=== PATIENT | male | born 1935 | race Caucasian/White ===

== ENCOUNTER → 2017-08-01 | Outpatient (CLI) | payer OTHER ==
[~2017-08-01] MED LIST: ASPI81CH PO; ATOR10 PO; CODGUAEL PO; Diovan Hct 1601 EACH PO
[2017-08-02 14:23] LABS: Stool Occult Blood Guaiac 1 Neg (Neg)
[2017-08-02 14:24] LABS: Stool Occult Blood Guaiac 2 Neg (Neg); Stool Occult Blood Guaiac 3 Neg (Neg)
== END | disposition home or self-care (01) ==
LOC: LAB SHORT 07-30 07:00 → OLS 07:00 → LAB SHORT 07:00
PROVIDERS: Internal Medicine
DX: D64.9 Anemia, unspecified (principal)
CPT/HCPCS: 82272

== ENCOUNTER → 2020-01-10 | Outpatient (CLI) | payer OTHER ==
[~2020-01-10] MED LIST changes: +Aspir 8181 MG PO; +DIOVAN HCT 1601 EAC1 PO; -Diovan Hct 1601 EACH PO; +FLUT1DIS2 INH; +HYDCHL25 PO; +IRBESARTAN-HCT1 EAC2 PO; +Percocet 5-3251 EACH PO; +TIOT18 INH
== END | disposition home or self-care (01) ==
LOC: PLD 11:47 → LAB SHORT 11:47
DX: D22.62 Melanocytic nevi of left upper limb, including shoulder (principal)
CPT/HCPCS: 88305